=== PATIENT | male | born 1955 | race Caucasian/White ===

== ENCOUNTER 2017-04-19 10:09 | Outpatient (CLI) | payer MEDICARE, MEDICAID ==
[2017-04-19 19:38] LABS: BASOPHILS % (AUTO) 0.5 %; EOSINOPHILS # (AUTO) 0.1 10^3/uL (0.0-0.7); HCT - HEMATOCRIT 43.1 % (42.0-52.0); HGB - HEMOGLOBIN 14.5 g/dL (14.0-18.0); LYMPHOCYTES # (AUTO) 1.1 10^3/uL (1.5-3.5); LYMPHOCYTES % (AUTO) 17.2 %; MEAN CORPUSCULAR HEMOGLOBIN 31.2 pg (27.0-31.0); MEAN CORPUSCULAR HGB CONC 33.6 g/dL (32.0-36.0); MEAN CORPUSCULAR VOLUME 92.8 fL (80.0-94.0); MEAN PLATELET VOLUME 7.7 fL (7.4-11.4); MONOCYTES # (AUTO) 0.4 10^3/uL (0.0-1.0); MONOCYTES % (AUTO) 5.7 %; NEUTROPHILS % (AUTO) 75.6 %; RED BLOOD COUNT 4.64 10^6/uL (4.70-6.10); RED CELL DISTRIBUTION WIDTH 13.2 % (12.0-15.0); UNCORRECTED WHITE BLOOD COUNT 6.7 x10^3/uL; WHITE BLOOD COUNT 6.7 x10^3/uL (4.8-10.8)
[2017-04-19 19:54] LABS: ALBUMIN/GLOBULIN RATIO 1.5 (1.0-2.2); BILIRUBIN,TOTAL 0.7 mg/dL (0.2-1.0); BUN - BLOOD UREA NITROGEN 15 mg/dL (6-20); CALCIUM 9.5 mg/dL (8.5-10.3); CARBON DIOXIDE - CO2 27 mmol/L (21-32); CHLORIDE 106 mmol/L (101-111); CHOL/HDL RATIO 5.5 (<5.0); CHOLESTEROL 238 mg/dL; CREATININE 1.1 mg/dL (0.6-1.2); GFR - MDRD 68 (>89); GLUCOSE 104 mg/dL (70-100); HDL CHOLESTEROL 43 mg/dL; LDL/HDL RATIO 3.9 (<3.6); POTASSIUM 4.2 mmol/L (3.5-5.0); SODIUM 139 mmol/L (135-145); TOTAL PROTEIN 7.2 g/dL (6.7-8.2); TRIGLYCERIDES 130 mg/dL; VLDL CHOLESTEROL 26 mg/dL
== END 2017-04-19 10:10 | disposition home or self-care (01) ==
LOC: LAB.N 10:09
PROVIDERS: ATTEND Physician Assistant
DX: F25.0 Schizoaffective disorder, bipolar type (principal); F31.9 Bipolar disorder, unspecified; F17.200 Nicotine dependence, unspecified, uncomplicated; Z79.899 Other long term (current) drug therapy
CPT/HCPCS: 36415; 80053; 80061; 84443; 85025

== ENCOUNTER 2017-04-27 12:01 | Outpatient (CLI) | payer MEDICARE, MEDICAID | END 2017-04-27 12:02 | disposition critical access hospital (66) | LOC: EMS 12:01 | PROVIDERS: ATTEND Surgery | DX: R55 Syncope and collapse (principal) | CPT/HCPCS: A0425; A0429 ==

== ENCOUNTER 2017-04-27 12:27 | Emergency (ER) | payer MEDICARE, MEDICAID ==
[2017-04-27] MEDS ORDERED: SODIUM CHLORIDE 0.9% 1,000 ML IV ONE (12:54)
--- NOTE | 2017-04-27 12:59 | ED Physician Documentation ---
PD HPI SYNCOPE - Stated complaint Stated Complaint: SYNCOPE - Chief complaint Chief Complaint: Neuro - History obtained from History obtained from: Patient - History of Present Illness Witnessed: Unwitnessed Timing - onset: Today Duration: Seconds Preceding symptoms: Vision changes, Diaphoresis, Dyspnea, Light headed Associated symptoms: Diaphoresis. No: Seizure, Incontinant of urine, Incontinant of stool, Headache, Vision changes, Chest pain, Palpitations, Dyspnea, Abdominal pain Contributing factors: Decreased PO intake, Exertion Injury occurred: None Similar symptoms before: Has not had sx before Recently seen: Clinic - Additional information Additional information: 62-year-old male who was released from [facility] about 1 month ago. During that time he had gained about 40 pounds of weight. He is started to workout again is riding a bicycle and he has been writing about 20 miles per day. Today he rolled his 20 miles and then went to [place].He was using a shovel and when he bent to worm picker the tree to put it in he had a syncopal episode. He did finish 3 other trees and then went to the clinic. At the clinic they did not have their EKG machine and sent the patient to the hospital for evaluation. With exertionally related syncope. Review of Systems Constitutional: reports: Sweats. denies: Fever Eyes: denies: Decreased vision Ears: denies: Ear pain Nose: denies: Rhinorrhea / runny nose, Congestion Throat: denies: Sore throat Cardiac: denies: Chest pain / pressure, Palpitations Respiratory: denies: Dyspnea, Cough GI: denies: Abdominal Pain, Nausea, Vomiting, Constipation, Diarrhea : denies: Dysuria, Frequency Skin: denies: Rash Musculoskeletal: denies: Neck pain, Back pain, Extremity pain, Extremity swelling Neurologic: reports: Syncope. denies: Generalized weakness, Focal weakness, Numbness, Altered mental status, Headache, Head injury PD PAST MEDICAL HISTORY - Present Medications Home Medications: Ambulatory Orders Medication Instructions Recorded Confirmed Ziprasidone HCl [Geodon] 80 mg PO DAILY 04/27/17 04/27/17 - Allergies Allergies/Adverse Reactions: Allergies Allergy/AdvReac Type Severity Reaction Status Date / Time carbamazepine [From Tegretol] Allergy Unknown Verified 04/27/17 12:51 PD ED PE NORMAL - Vitals Vital signs reviewed: Yes (Normal) - General General: No acute distress, Well developed/nourished - HEENT HEENT: Atraumatic, PERRL, EOMI - Neck Neck: Supple, no meningeal sign, No bony TTP - Cardiac Cardiac: RRR, No murmur - Respiratory Respiratory: No respiratory distress, Clear bilaterally - Abdomen Abdomen: Soft, Non tender - Back Back: No CVA TTP, No spinal TTP - Derm Derm: Normal color, Warm and dry, No rash - Extremities Extremities: No deformity, No edema - Neuro Neuro: No motor deficit, No sensory deficit - Psych Psych: Normal mood, Normal affect Results - Vitals Vitals: Vital Signs - 24 hr 04/27/17 12:15 Temperature 36.8 C Heart Rate 64 Respiratory 18 Rate Blood Pressure 124/76 O2 Saturation 100 Oxygen O2 Source Room air - EKG (time done) 1238 Rate: Rate (enter#) (59) QRS: Low voltage Compare to prior EKG: Old EKG unavailable Computer interpretation: Agree with computer - Labs Labs: Laboratory Tests 04/27/17 04/27/17 04/27/17 13:03 13:03 13:03 WBC 8.3 RBC 4.53 L Hgb 13.9 L Hct 41.1 L MCV 90.7 MCH 30.8 MCHC 33.9 RDW 13.1 Plt Count 219 MPV 6.9 L Neut # 6.7 H Lymph # 1.0 L [place] # 0.5 Eos # 0.1 Baso # 0.1 Absolute Nucleated RBC 0.00 Nucleated RBCs 0.0 Sodium 138 Potassium 4.2 Chloride 104 Carbon Dioxide 26 Anion Gap 8.0 BUN 21 H Creatinine 1.3 H Estimated GFR (MDRD) 56 L Glucose 101 H Calcium 9.6 Total Bilirubin 0.6 AST 28 ALT 50 Alkaline Phosphatase 49 Troponin I < 0.04 Total Protein 7.0 Albumin 4.1 Globulin 2.9 Albumin/Globulin Ratio 1.4 Lipase 36 Urine Color Urine Clarity Urine pH Ur Specific [place] Urine Protein Urine Glucose (UA) Urine Ketones Urine Occult Blood Urine Nitrite Urine Bilirubin Urine Urobilinogen Ur Leukocyte Esterase Ur Microscopic Review Urine Culture Comments 04/27/17 13:40 WBC RBC Hgb Hct MCV MCH MCHC RDW Plt Count MPV Neut # Lymph # [place] # Eos # Baso # Absolute Nucleated RBC Nucleated RBCs Sodium Potassium Chloride Carbon Dioxide Anion Gap BUN Creatinine Estimated GFR (MDRD) Glucose Calcium Total Bilirubin AST ALT Alkaline Phosphatase Troponin I Total Protein Albumin Globulin Albumin/Globulin Ratio Lipase Urine Color YELLOW Urine Clarity CLEAR Urine pH 6.0 Ur Specific [place] 1.025 Urine Protein NEGATIVE Urine Glucose (UA) NEGATIVE Urine Ketones 15 H Urine Occult Blood NEGATIVE Urine Nitrite NEGATIVE Urine Bilirubin NEGATIVE Urine Urobilinogen 0.2 (NORMAL) Ur Leukocyte Esterase NEGATIVE Ur Microscopic Review NOT INDICATED Urine Culture Comments NOT INDICATED Procedures - IVC sono (time) 1255 Bedside IVC sono: IVC measures (cm) (1.61), IVC collapsed c insp (cm) (complete) , Dehydration PD MEDICAL DECISION MAKING - ED course Complexity details: reviewed results, re-evaluated patient, considered differential, d/w patient ED course: 62-year-old male with a exertion today and no hydration is found to be dehydrated here in the emergency department and we will administer IV fluids. Departure - Departure Disposition: 01 Home, Self Care Clinical Impression: Syncope Qualifiers: Syncope type: heat syncope Encounter type: initial encounter Qualified Code(s) : T67.1XXA - Heat syncope, initial encounter Condition: Stable Instructions: ED Syncope Vasovagal, ED Dehydration Follow-Up: [facility] [Provider Group]
[2017-04-27 13:14] LABS: BASOPHILS # (AUTO) 0.1 10^3/uL (0.0-0.1); BASOPHILS % (AUTO) 0.6 %; EOSINOPHILS # (AUTO) 0.1 10^3/uL (0.0-0.7); EOSINOPHILS % (AUTO) 0.8 %; HCT - HEMATOCRIT 41.1 % (42.0-52.0); HGB - HEMOGLOBIN 13.9 g/dL (14.0-18.0); LYMPHOCYTES % (AUTO) 11.9 %; MEAN CORPUSCULAR HEMOGLOBIN 30.8 pg (27.0-31.0); MEAN CORPUSCULAR HGB CONC 33.9 g/dL (32.0-36.0); MEAN CORPUSCULAR VOLUME 90.7 fL (80.0-94.0); MEAN PLATELET VOLUME 6.9 fL (7.4-11.4); MONOCYTES # (AUTO) 0.5 10^3/uL (0.0-1.0); MONOCYTES % (AUTO) 5.6 %; NEUTROPHILS # (AUTO) 6.7 10^3/uL (1.5-6.6); NEUTROPHILS % (AUTO) 81.1 %; RED BLOOD COUNT 4.53 10^6/uL (4.70-6.10); RED CELL DISTRIBUTION WIDTH 13.1 % (12.0-15.0); UNCORRECTED WHITE BLOOD COUNT 8.3 x10^3/uL; WHITE BLOOD COUNT 8.3 x10^3/uL (4.8-10.8)
[2017-04-27 13:27] LABS: ALBUMIN/GLOBULIN RATIO 1.4 (1.0-2.2); BILIRUBIN,TOTAL 0.6 mg/dL (0.2-1.0); CALCIUM 9.6 mg/dL (8.5-10.3); CREATININE 1.3 mg/dL (0.6-1.2); POTASSIUM 4.2 mmol/L (3.5-5.0)
[2017-04-27 14:12] LABS: BILIRUBIN,URINE NEGATIVE (NEGATIVE)
[2017-04-27 14:13] LABS: UA CHARGE (STRIP ONLY) YES; UR CULTURE IF IND NOT INDICATED
[2017-04-27 14:40] VITALS: BP 127/77
== END 2017-04-27 14:59 | disposition home or self-care (01) ==
LOC: MERGE 12:27 → ED 12:27
DX: E86.0 Dehydration (principal); R55 Syncope and collapse
CPT/HCPCS: 36415; 80053; 81001; 81003; 83690; 84484; 85025; 87086; 93005; 99283; 99284

== ENCOUNTER 2017-06-20 13:15 | Day surgery (SDC) | payer MEDICARE, MEDICAID ==
[2017-06-20] MEDS ORDERED: LACTATED RINGERS 1,000 ML IV ONE (13:32)
[2017-06-20] MEDS ORDERED: fentaNYL 100 MCG/2 ML VIAL IVP ONE (15:05)
[2017-06-20] MEDS ORDERED: MIDAZOLAM 2 MG/2 ML VIAL IVP ONE (15:05)
[2017-06-20 15:19] VITALS: BP 122/70
== END 2017-06-20 13:16 | disposition home or self-care (01) ==
LOC: SDS 13:15
PROVIDERS: ATTEND Surgery
PROC: 0DJD8ZZ Inspection of Lower Intestinal Tract, Via Natural or Artificial Opening Endoscopic (ICD-10-PCS; principal; 2017-06-20 14:30)
DX: Z86.010 Personal history of colon polyps (principal); F31.9 Bipolar disorder, unspecified
CPT/HCPCS: 45378; J7120

== ENCOUNTER 2017-07-07 14:40 | Outpatient (CLI) | payer MEDICARE, MEDICAID | END 2017-07-07 14:41 | disposition home or self-care (01) | LOC: LAB.N 14:40 | PROVIDERS: ATTEND Nurse Practitioner Gerontology | DX: R97.20 Elevated prostate specific antigen [PSA] (principal) | CPT/HCPCS: 36415; 84153 ==

== ENCOUNTER 2018-03-20 08:00 | Outpatient (CLI) | payer MEDICARE, MEDICAID | END 2018-03-20 08:01 | disposition home or self-care (01) | LOC: LAB.N 08:00 | PROVIDERS: ATTEND Nurse Practitioner Gerontology | DX: E29.1 Testicular hypofunction (principal); R07.9 Chest pain, unspecified | CPT/HCPCS: 36415; 81599; 84402; 84403; 93005 ==

== ENCOUNTER → 2018-03-20 | Outpatient (CLI) | payer MEDICARE, MEDICAID | LOC: RT.N 09:57 | PROVIDERS: ATTEND Nurse Practitioner Gerontology | DX: R07.9 Chest pain, unspecified (principal) | CPT/HCPCS: 93005 ==

== ENCOUNTER 2018-10-19 17:05 | Outpatient (CLI) | payer MEDICARE, MEDICAID | END 2018-10-19 17:06 | disposition critical access hospital (66) | LOC: EMS 17:05 | PROVIDERS: ATTEND Surgery | DX: R12 Heartburn (principal) | CPT/HCPCS: A0425; A0429 ==

== ENCOUNTER 2018-10-19 17:23 | Emergency (ER) | payer MEDICARE, MEDICAID ==
[2018-10-19] MEDS ORDERED: SODIUM CHLORIDE 0.9% 1,000 ML IV ONE (17:52)
[2018-10-19] MEDS ORDERED: FAMOTIDINE 20 MG/50 ML 50 ML IV ONE (17:52)
--- NOTE | 2018-10-19 17:56 | ED Physician Documentation ---
PD HPI ABD PAIN - Stated complaint Stated Complaint: EPIGASTRIC PAIN - Chief complaint Chief Complaint: Abd Pain - History obtained from History obtained from: Patient - History of Present Illness Timing - onset: Today (This is a 63-year-old gentleman who presents by EMS for 2 episodes of heartburn today. He clearly has chronic delusions and goes on about how he feels like his legs are covered in jelly and it is related to cyber attacks. He states that a few months ago he was in [place] campus meeting with some general's, specifically general Cheryl and he was notified of the issue and that is being taken care of. He directed me to [employer] and some [employer] videos. Regardless the more acute issues he had 2 episodes of burning central epigastric pain today that started at rest. He says it feels like prior episodes of heartburn. He is pain-free on arrival here.) Review of Systems Constitutional: denies: Fever, Chills Cardiac: denies: Chest pain / pressure, Palpitations Respiratory: denies: Dyspnea, Cough GI: reports: Abdominal Pain. denies: Nausea, Vomiting, Constipation, Diarrhea PD PAST MEDICAL HISTORY - Past Medical History Cardiovascular: None, High cholesterol Respiratory: None GI: Colon polyps : None Psych: Bipolar disorder Musculoskeletal: None - Past Surgical History General: Colonoscopy - Present Medications Home Medications: Ambulatory Orders Medication Instructions Recorded Confirmed Ziprasidone HCl [Geodon] 80 mg PO DAILY 04/27/17 06/20/17 Atorvastatin [Lipitor] 20 mg PO DAILY 06/20/17 06/20/17 - Allergies Allergies/Adverse Reactions: Allergies Allergy/AdvReac Type Severity Reaction Status Date / Time carbamazepine [From Tegretol] Allergy Unknown Verified 10/19/18 17:32 PD ED PE NORMAL - Vitals Vital signs reviewed: Yes - General General: Alert and oriented X 3, No acute distress - HEENT HEENT: PERRL, EOMI - Neck Neck: Supple, no meningeal sign, No bony TTP - Cardiac Cardiac: RRR, No murmur - Respiratory Respiratory: No respiratory distress, Clear bilaterally - Abdomen Abdomen: Non tender - Extremities Extremities: No edema, No calf tenderness / cord - Neuro Neuro: Alert and oriented X 3, Normal speech - Psych Psych: Normal mood, Normal affect Results - Vitals Vitals: Vital Signs - 24 hr 10/19/18 10/19/18 17:25 19:10 Temperature 36.2 C L Heart Rate 80 68 Respiratory 16 13 Rate Blood Pressure 143/88 H 122/78 O2 Saturation 98 99 Oxygen O2 Source Room air - EKG (time done) 1729 Rate: Rate (enter#) (76) Rhythm: NSR [place]: Normal Intervals: Normal [place] QRS: Normal Ischemia: Normal ST segments Computer interpretation: Agree with computer - Labs Labs: Laboratory Tests 10/19/18 10/19/18 10/19/18 17:33 17:40 17:40 WBC 7.4 RBC 4.49 L Hgb 14.3 Hct 41.8 L MCV 93.0 MCH 31.9 H MCHC 34.2 RDW 13.6 Plt Count 277 MPV 7.6 Neut # (Auto) 5.3 Lymph # (Auto) 1.3 L [place] # (Auto) 0.6 Eos # (Auto) 0.1 Baso # (Auto) 0.1 Absolute Nucleated RBC 0.00 Nucleated RBC % 0.0 Sodium 134 L Potassium 4.0 Chloride 102 Carbon Dioxide 25 Anion Gap 7.0 BUN 16 Creatinine 1.1 Estimated GFR (MDRD) 68 L Glucose 121 H Calcium 8.6 Total Bilirubin 0.4 AST 20 ALT 28 Alkaline Phosphatase 64 Troponin I < 0.04 Total Protein 6.4 L Albumin 3.5 Globulin 2.9 Albumin/Globulin Ratio 1.2 Lipase 51 Urine Opiates Screen Ur Oxycodone Screen Urine Methadone Screen Ur Propoxyphene Screen Ur Barbiturates Screen Ur Tricyclics Screen Ur Phencyclidine Scrn Ur Amphetamine Screen U Methamphetamines Scrn U Benzodiazepines Scrn Urine Cocaine Screen U Cannabinoids Screen 10/19/18 18:55 WBC RBC Hgb Hct MCV MCH MCHC RDW Plt Count MPV Neut # (Auto) Lymph # (Auto) [place] # (Auto) Eos # (Auto) Baso # (Auto) Absolute Nucleated RBC Nucleated RBC % Sodium Potassium Chloride Carbon Dioxide Anion Gap BUN Creatinine Estimated GFR (MDRD) Glucose Calcium Total Bilirubin AST ALT Alkaline Phosphatase Troponin I Total Protein Albumin Globulin Albumin/Globulin Ratio Lipase Urine Opiates Screen NEGATIVE Ur Oxycodone Screen NEGATIVE Urine Methadone Screen NEGATIVE Ur Propoxyphene Screen NEGATIVE Ur Barbiturates Screen NEGATIVE Ur Tricyclics Screen NEGATIVE Ur Phencyclidine Scrn NEGATIVE Ur Amphetamine Screen NEGATIVE U Methamphetamines Scrn NEGATIVE U Benzodiazepines Scrn NEGATIVE Urine Cocaine Screen NEGATIVE U Cannabinoids Screen NEGATIVE PD MEDICAL DECISION MAKING - ED course ED course: This is a 63-year-old gentleman with what sounds like gastritis. Objectively no acute findings were found on workup. No evidence of cardiac ischemia. He also seems to have stable delusions about cyber attacks and electromagnetic waves. He does have a history of bipolar disorder. There is no indication for involuntary treatment. Departure - Departure Disposition: 01 Home, Self Care Clinical Impression: Gastritis Condition: Good Record reviewed to determine appropriate education?: Yes Instructions: ED Gastritis Comments: Call your doctor to arrange a follow-up appointment, make the next available appointment. In the interim, return anytime if worse or if new symptoms develop. Discharge Date/Time: 10/19/18 19:46
[2018-10-19 18:12] LABS: ALBUMIN 3.5 g/dL (3.2-5.5); ALBUMIN/GLOBULIN RATIO 1.2 (1.0-2.2); BILIRUBIN,TOTAL 0.4 mg/dL (0.2-1.0); CALCIUM 8.6 mg/dL (8.5-10.3); CREATININE 1.1 mg/dL (0.6-1.2); TOTAL PROTEIN 6.4 g/dL (6.7-8.2)
[2018-10-19 18:15] LABS: BASOPHILS # (AUTO) 0.1 10^3/uL (0.0-0.1); BASOPHILS % (AUTO) 1.2 %; EOSINOPHILS # (AUTO) 0.1 10^3/uL (0.0-0.7); EOSINOPHILS % (AUTO) 1.9 %; HGB - HEMOGLOBIN 14.3 g/dL (14.0-18.0); LYMPHOCYTES # (AUTO) 1.3 10^3/uL (1.5-3.5); LYMPHOCYTES % (AUTO) 18.1 %; MEAN CORPUSCULAR HEMOGLOBIN 31.9 pg (27.0-31.0); MEAN CORPUSCULAR HGB CONC 34.2 g/dL (32.0-36.0); MEAN PLATELET VOLUME 7.6 fL (7.4-11.4); MONOCYTES # (AUTO) 0.6 10^3/uL (0.0-1.0); MONOCYTES % (AUTO) 7.7 %; NEUTROPHILS # (AUTO) 5.3 10^3/uL (1.5-6.6); NEUTROPHILS % (AUTO) 71.1 %; PLT - PLATELET COUNT 277 10^3/uL (130-450); RED BLOOD COUNT 4.49 10^6/uL (4.70-6.10); RED CELL DISTRIBUTION WIDTH 13.6 % (12.0-15.0); WHITE BLOOD COUNT 7.4 x10^3/uL (4.8-10.8)
--- NOTE | 2018-10-19 18:47 | XRAY Report ---
Reason: pain Procedure Date: 10/19/2018 Accession Number: [id number] / [id number] Procedure: XR - Chest 1 View X-Ray CPT Code: 24737 FULL RESULT: EXAM: CHEST RADIOGRAPHY EXAM DATE: 10/19/2018 06:18 PM. CLINICAL HISTORY: Pain. COMPARISON: 03/24/2012 7:22 PM. TECHNIQUE: 1 view. FINDINGS: Lungs/Pleura: No dense consolidation. No large effusion or pneumothorax. No pulmonary edema. Mediastinum: Heart and mediastinal contours are unremarkable. Other: None. IMPRESSION: No acute radiographic pulmonary abnormalities. RADIA
[2018-10-19 19:05] LABS: MUDS CUTOFF CONCENTRATIONS CUTOFF CONC BELOW:
[2018-10-19 19:11] VITALS: BP 122/78
[2018-10-19 19:24] LABS: AMPHETAMINE SCREEN,URINE NEGATIVE (NEGATIVE); BENZODIAZEPINES SCREEN, URINE NEGATIVE (NEGATIVE); COCAINE SCREEN URINE NEGATIVE (NEGATIVE); METHADONE SCREEN, URINE NEGATIVE (NEGATIVE); METHAMPHETAMINES SCREEN, URINE NEGATIVE (NEGATIVE); OPIATE SCREEN, URINE NEGATIVE (NEGATIVE); OXYCODONE SCREEN, URINE NEGATIVE (NEGATIVE); PROPOXYPHENE SCREEN, URINE NEGATIVE (NEGATIVE); TRICYCLIC ANTIDEPRESSANT,URINE NEGATIVE (NEGATIVE)
== END 2018-10-19 19:46 | disposition home or self-care (01) ==
LOC: EDUNIT# → ED 17:23
DX: K29.70 Gastritis, unspecified, without bleeding (principal); R94.31 Abnormal electrocardiogram [ECG] [EKG]; E78.00 Pure hypercholesterolemia, unspecified
CPT/HCPCS: 36415; 71045; 80053; 80306; 83690; 84484; 85025; 93005; 96361; 96374; 99284

== ENCOUNTER 2018-10-21 11:22 | Emergency (ER) | payer MEDICARE, MEDICAID ==
--- NOTE | 2018-10-21 12:18 | ED Physician Documentation ---
PD HPI MHE - Stated complaint Stated Complaint: MHE - Chief complaint Chief Complaint: MHE - History obtained from History obtained from: Patient - History of Present Illness Primary symptom: Other (This is a 63-year-old gentleman Who has a history of bipolar disorder. He states he is taking his medications. I saw him a few days ago for epigastric pain but he was clearly having stable delusions at the time. He returns today stating that he was in a parking lot where a truck was offloading liquid carbon dioxide (noting that that does not exist at our atmospheric pressure) and there was a piece of dry slipped on the ground. He rubbed it on his dorsal right second knuckle which he has been having some pain and for a long time and he felt like poison was spreading through cells there. He would like the FBI contacted.) Review of Systems Ten Systems: 10 systems reviewed and negative Constitutional: denies: Fever, Chills Throat: denies: Dental pain / toothache, Sore throat Cardiac: denies: Chest pain / pressure, Palpitations Respiratory: denies: Dyspnea, Cough PD PAST MEDICAL HISTORY - Past Medical History Cardiovascular: None, High cholesterol Respiratory: None GI: Colon polyps : None Psych: Bipolar disorder Musculoskeletal: None - Past Surgical History General: Colonoscopy - Present Medications Home Medications: Ambulatory Orders Medication Instructions Recorded Confirmed Ziprasidone HCl [Geodon] 80 mg PO DAILY 04/27/17 10/21/18 Atorvastatin [Lipitor] 20 mg PO DAILY 06/20/17 10/21/18 - Allergies Allergies/Adverse Reactions: Allergies Allergy/AdvReac Type Severity Reaction Status Date / Time carbamazepine [From Tegretol] Allergy Unknown Verified 10/21/18 11:33 - Social History Does the pt smoke?: No Smoking Status: Never smoker Does the pt drink ETOH?: Yes Does the pt have substance abuse?: No - Immunizations Immunizations are current?: Yes PD ED PE NORMAL - Vitals Vital signs reviewed: Yes - General General: Alert and oriented X 3, No acute distress - HEENT HEENT: PERRL, EOMI - Neck Neck: Supple, no meningeal sign, No bony TTP - Cardiac Cardiac: RRR, No murmur - Respiratory Respiratory: No respiratory distress, Clear bilaterally - Abdomen Abdomen: Normal bowel sounds, Soft, Non tender - Back Back: No CVA TTP, No spinal TTP - Derm Derm: Normal color, Warm and dry - Extremities Extremities: No edema, No calf tenderness / cord - Neuro Neuro: Alert and oriented X 3, Normal speech Eye Opening: Spontaneous Motor: Obeys Commands Verbal: Oriented GCS Score: 15 - Psych Psych: Other (He is clearly delusional but very cooperative and pleasant.) Results - Vitals Vitals: Vital Signs - 24 hr 10/21/18 11:30 Temperature 36.7 C Heart Rate 87 Respiratory 16 Rate Blood Pressure 129/84 H O2 Saturation 100 Oxygen O2 Source Room air - Labs Labs: Laboratory Tests 10/21/18 10/21/18 10/21/18 12:23 12:23 12:23 WBC 6.1 RBC 5.00 Hgb 15.5 Hct 45.6 MCV 91.2 MCH 31.0 MCHC 34.0 RDW 13.5 Plt Count 292 MPV 7.1 L Neut # (Auto) 4.0 Lymph # (Auto) 1.4 L [place] # (Auto) 0.5 Eos # (Auto) 0.1 Baso # (Auto) 0.1 Absolute Nucleated RBC 0.00 Nucleated RBC % 0.0 Sodium 137 Potassium 4.6 Chloride 103 Carbon Dioxide 27 Anion Gap 7.0 BUN 9 Creatinine 0.9 Estimated GFR (MDRD) 86 L Glucose 91 Calcium 9.4 Total Bilirubin 0.4 AST 17 ALT 24 Alkaline Phosphatase 62 Total Protein 7.0 Albumin 3.8 Globulin 3.2 Albumin/Globulin Ratio 1.2 Lipase 45 TSH 0.39 Urine Color Urine Clarity Urine pH Ur Specific [place] Urine Protein Urine Glucose (UA) Urine Ketones Urine Occult Blood Urine Nitrite Urine Bilirubin Urine Urobilinogen Ur Leukocyte Esterase Ur Microscopic Review Urine Culture Comments Urine Opiates Screen Ur Oxycodone Screen Urine Methadone Screen Ur Propoxyphene Screen Ur Barbiturates Screen Ur Tricyclics Screen Ur Phencyclidine Scrn Ur Amphetamine Screen U Methamphetamines Scrn U Benzodiazepines Scrn Urine Cocaine Screen U Cannabinoids Screen Ethyl Alcohol 12.3 10/21/18 12:25 WBC RBC Hgb Hct MCV MCH MCHC RDW Plt Count MPV Neut # (Auto) Lymph # (Auto) [place] # (Auto) Eos # (Auto) Baso # (Auto) Absolute Nucleated RBC Nucleated RBC % Sodium Potassium Chloride Carbon Dioxide Anion Gap BUN Creatinine Estimated GFR (MDRD) Glucose Calcium Total Bilirubin AST ALT Alkaline Phosphatase Total Protein Albumin Globulin Albumin/Globulin Ratio Lipase TSH Urine Color YELLOW Urine Clarity CLEAR Urine pH 5.5 Ur Specific [place] 1.020 Urine Protein NEGATIVE Urine Glucose (UA) NEGATIVE Urine Ketones NEGATIVE Urine Occult Blood NEGATIVE Urine Nitrite NEGATIVE Urine Bilirubin NEGATIVE Urine Urobilinogen 0.2 (NORMAL) Ur Leukocyte Esterase NEGATIVE Ur Microscopic Review NOT INDICATED Urine Culture Comments NOT INDICATED Urine Opiates Screen NEGATIVE Ur Oxycodone Screen NEGATIVE Urine Methadone Screen NEGATIVE Ur Propoxyphene Screen NEGATIVE Ur Barbiturates Screen NEGATIVE Ur Tricyclics Screen NEGATIVE Ur Phencyclidine Scrn NEGATIVE Ur Amphetamine Screen NEGATIVE U Methamphetamines Scrn NEGATIVE U Benzodiazepines Scrn NEGATIVE Urine Cocaine Screen NEGATIVE U Cannabinoids Screen NEGATIVE Ethyl Alcohol PD MEDICAL DECISION MAKING - ED course ED course: 63-year-old gentleman with history of bipolar disorder with continued delusions. This is his second visit in 3 days and given the increasing frequency social work was consulted who deferred to the [facility] who saw him and feels he is appropriate for outpatient treatment and safe. Departure - Departure Disposition: 01 Home, Self Care Clinical Impression: Bipolar affective disorder Qualifiers: Active/Remission status: currently active Current bipolar episode type: mixed Current episode severity: severe Psychotic features: with psychotic features Qualified Code(s): F31.64 - Bipolar disorder, current episode mixed, severe, with psychotic features Condition: Good Record reviewed to determine appropriate education?: Yes Instructions: ED Manic Depression Comments: Continue your current medications. Call your doctor to arrange a follow-up appointment, make the next available appointment. In the interim, return anytime if worse or if new symptoms develop. Follow-up with [facility] at [phone] to schedule psychiatric care and counseling. Your blood pressure was elevated today on check into the emergency department. This does not mean that you have hypertension, it is a common phenomenon to come to the emergency department and have elevated blood pressure. I recommend that you see your primary care physician within the week to have it rechecked when you are feeling better.
[2018-10-21 12:30] LABS: MUDS CUTOFF CONCENTRATIONS CUTOFF CONC BELOW:
[2018-10-21 12:31] LABS: BILIRUBIN,URINE NEGATIVE (NEGATIVE); GLUCOSE, URINE (UA) NEGATIVE (NEGATIVE); KETONES,URINE (UA) NEGATIVE (NEGATIVE); LEUKOCYTE ESTERASE, URINE NEGATIVE (NEGATIVE); NITRITE,URINE NEGATIVE (NEGATIVE); OCCULT BLOOD,URINE NEGATIVE (NEGATIVE); PH,URINE 5.5 PH (5.0-7.5); PROTEIN,URINE NEGATIVE (NEGATIVE); UROBILINOGEN,URINE 0.2 (NORMAL) E.U./dL (NORMAL)
[2018-10-21 12:32] LABS: CLARITY,URINE CLEAR (CLEAR)
[2018-10-21 12:33] LABS: BASOPHILS # (AUTO) 0.1 10^3/uL (0.0-0.1); BASOPHILS % (AUTO) 1.1 %; EOSINOPHILS # (AUTO) 0.1 10^3/uL (0.0-0.7); EOSINOPHILS % (AUTO) 1.8 %; HGB - HEMOGLOBIN 15.5 g/dL (14.0-18.0); LYMPHOCYTES # (AUTO) 1.4 10^3/uL (1.5-3.5); LYMPHOCYTES % (AUTO) 23.3 %; MEAN CORPUSCULAR VOLUME 91.2 fL (80.0-94.0); MEAN PLATELET VOLUME 7.1 fL (7.4-11.4); MONOCYTES # (AUTO) 0.5 10^3/uL (0.0-1.0); MONOCYTES % (AUTO) 8.2 %; NEUTROPHILS % (AUTO) 65.6 %; PLT - PLATELET COUNT 292 10^3/uL (130-450); RED CELL DISTRIBUTION WIDTH 13.5 % (12.0-15.0); WHITE BLOOD COUNT 6.1 x10^3/uL (4.8-10.8)
[2018-10-21 12:45] LABS: ALBUMIN 3.8 g/dL (3.2-5.5); ALBUMIN/GLOBULIN RATIO 1.2 (1.0-2.2); BILIRUBIN,TOTAL 0.4 mg/dL (0.2-1.0); CALCIUM 9.4 mg/dL (8.5-10.3); CREATININE 0.9 mg/dL (0.6-1.2)
[2018-10-21 12:52] LABS: AMPHETAMINE SCREEN,URINE NEGATIVE (NEGATIVE); BENZODIAZEPINES SCREEN, URINE NEGATIVE (NEGATIVE); COCAINE SCREEN URINE NEGATIVE (NEGATIVE); METHADONE SCREEN, URINE NEGATIVE (NEGATIVE); METHAMPHETAMINES SCREEN, URINE NEGATIVE (NEGATIVE); OPIATE SCREEN, URINE NEGATIVE (NEGATIVE); OXYCODONE SCREEN, URINE NEGATIVE (NEGATIVE); PROPOXYPHENE SCREEN, URINE NEGATIVE (NEGATIVE); TRICYCLIC ANTIDEPRESSANT,URINE NEGATIVE (NEGATIVE)
[2018-10-21 18:04] VITALS: BP 128/82
== END 2018-10-21 18:02 | disposition home or self-care (01) ==
LOC: ED 11:22
DX: F31.64 Bipolar disorder, current episode mixed, severe, with psychotic features (principal); R03.0 Elevated blood-pressure reading, without diagnosis of hypertension
CPT/HCPCS: 36415; 80053; 80306; 80320; 81001; 81003; 83690; 84443; 85025; 87086; 99283

== ENCOUNTER 2019-06-19 01:09 | Emergency (ER) | payer MEDICARE, MEDICAID ==
--- NOTE | 2019-06-19 01:55 | ED Physician Documentation ---
PD HPI GI BLEED - Stated complaint Stated Complaint: COFFEE GROUND EMESIS/REFLUX - Chief complaint Chief Complaint: Abd Pain - History obtained from History obtained from: Patient - History of Present Illness Timing - onset: How many days ago (few) Timing - duration: Days (few) Timing - details: Gradual onset, Still present (He has been having some upper abdominal pain and heartburn type feelings, worse with eating and sometimes improved with antacids for several days to week or so. It was more noticeable the last day and he did have emesis of coffee-ground type material this past evening.) Associated symptoms: Coffee ground emesis. No: Hematemesis, Black/tarry stool Contributing factors: No: Bad food, Travel, Alcohol use (occasional beer, not regular), NSAID use Improved by: Meds (antacid) Worsened by: Eating Similar symptoms before: Diagnosis (Prior gastritis or ulcer was treated with acid reducing medicines and another prescription that he describes as a red syrup type medication prescribed by his provider that cost "$200 per bottle". He is not sure what the name of it was. He states it was prescribed for his ulcer type stomach symptoms. He said it did work well for him in the past. This was couple of years ago.) Recently seen: Not recently seen Review of Systems Constitutional: denies: Fever, Chills, Myalgias Nose: denies: Rhinorrhea / runny nose, Congestion Throat: denies: Sore throat Respiratory: denies: Cough GI: reports: Abdominal Pain, Nausea, Vomiting (once this past evening). denies: Abdominal Swelling, Diarrhea, Bloody / black stool Musculoskeletal: denies: Neck pain, Back pain Neurologic: reports: Generalized weakness. denies: Focal weakness, Near syncope, Headache PD PAST MEDICAL HISTORY - Past Medical History Past Medical History: Yes Cardiovascular: None, High cholesterol Respiratory: None GI: Ulcers, Colon polyps : None Psych: Bipolar disorder Musculoskeletal: None - Past Surgical History Past Surgical History: Yes General: Colonoscopy - Present Medications Home Medications: Ambulatory Orders Medication Instructions Recorded Confirmed Atorvastatin [Lipitor] 20 mg PO DAILY 06/20/17 10/21/18 Lidocaine Viscous 2% [Xylocaine 5 ml PO Q4H PRN #100 ml 06/19/19 Viscous 2%] Omeprazole 20 mg PO DAILY #30 capsule. 06/19/19 Sucralfate [Carafate] 1 gm PO ACHS #28 tablet 06/19/19 - Allergies Allergies/Adverse Reactions: Allergies Allergy/AdvReac Type Severity Reaction Status Date / Time carbamazepine [From Tegretol] Allergy Unknown Verified 06/19/19 01:17 - Living Situation Living Arrangement: reports: At home - Social History Does the pt smoke?: No Smoking Status: Never smoker Does the pt drink ETOH?: Yes ETOH Use: Beer (occasional, not taily) Does the pt have substance abuse?: No - Immunizations Immunizations are current?: Yes PD ED PE NORMAL - Vitals Vital signs reviewed: Yes - General General: Alert and oriented X 3, Well developed/nourished - HEENT HEENT: Moist mucous membranes, Pharynx benign - Neck Neck: Supple, no meningeal sign, No adenopathy - Cardiac Cardiac: RRR, No murmur - Respiratory Respiratory: Clear bilaterally - Abdomen Abdomen: Normal bowel sounds, Soft, Non distended, No organomegaly, Other (Some tenderness without guarding in the epigastric area. The lower abdomen is not tender.) - Male Male : Deferred - Rectal Rectal: Deferred - Back Back: No CVA TTP - Derm Derm: Normal color, Warm and dry - Extremities Extremities: Normal ROM s pain, No edema, No calf tenderness / cord - Neuro Neuro: Alert and oriented X 3, No motor deficit, Normal speech Results - Vitals Vitals: Vital Signs - 24 hr 06/19/19 06/19/19 06/19/19 01:14 01:30 02:18 Temperature 36.4 C L Heart Rate 76 69 63 Respiratory 16 20 19 Rate Blood Pressure 126/91 H 111/82 H O2 Saturation 94 95 95 Oxygen O2 Source Room air - Labs Labs: Laboratory Tests 06/19/19 06/19/19 01:22 01:22 WBC 11.5 H RBC 5.24 Hgb 15.8 Hct 47.7 MCV 91.0 MCH 30.2 MCHC 33.1 RDW 12.8 Plt Count 268 MPV 9.6 Neut # (Auto) 9.2 H Lymph # (Auto) 1.4 L [place] # (Auto) 0.8 Eos # (Auto) 0.1 Baso # (Auto) 0.1 Absolute Nucleated RBC 0.00 Nucleated RBC % 0.0 Sodium 142 Potassium 4.1 Chloride 105 Carbon Dioxide 27 Anion Gap 10.0 BUN 27 H Creatinine 1.5 H Estimated GFR (MDRD) 47 L Glucose 107 H Calcium 9.5 Magnesium 2.0 Total Bilirubin 0.4 AST 20 ALT 22 Alkaline Phosphatase 69 Total Protein 7.0 Albumin 4.1 Globulin 2.9 Albumin/Globulin Ratio 1.4 Lipase 31 PD MEDICAL DECISION MAKING - ED course Complexity details: re-evaluated patient (He is feeling better with a GI cocktail. Presumed gastritis versus ulcer. His blood count is good so the coffee-ground emesis today probably represents just a mild bit of bleeding. Will prescribe medications and have him follow-up with his primary care. To return if significant bleeding with vomiting or consistent dark stools.), cons idered differential, d/w patient Departure - Departure Disposition: Home, Self Care Clinical Impression: Coffee ground emesis Acute gastritis Qualifiers: Gastritis type: unspecified gastritis Gastritis bleeding: with bleeding Qualified Code(s): K29.01 - Acute gastritis with bleeding Condition: Stable Record reviewed to determine appropriate education?: Yes Instructions: ED PUD Vs Gastritis Follow-Up: Ira Kraft ARNP [Primary Care Provider] - Prescriptions: Lidocaine Viscous 2% [Xylocaine Viscous 2%] 5 ml PO Q4H PRN #100 ml PRN Reason: Pain Omeprazole 20 mg PO DAILY #30 capsule. Sucralfate [Carafate] 1 gm PO ACHS #28 tablet Comments: Stay well-hydrated. Use omeprazole acid reducing medicine daily for the next month at least. Sucralfate to coat the stomach better 3 or 4 times a day for the next week. To that add antacid such as Maalox or Mylanta and you can put a teaspoon of lidocaine in there to help with stomach discomfort. Recheck if not improving well over the next several days to week. Follow-up with your primary care in a week or so to update how well you are doing and if any treatment changes are needed. Return if worsening. Your blood count is good here so even if you are having a little bit of bleeding right now in the stomach you still have a safety margin before worrying about too much blood loss. Obviously return if you have significant amount of vomiting blood show up. You may notice a little bit of dark stool in a few days and as long as its transient and mild then no extra worry. Discharge Date/Time: 06/19/19 02:51
[2019-06-19] MEDS ORDERED: LIDOCAINE VISCOUS 2% 15 ML UDC MM STA (02:06)
[2019-06-19] MEDS ORDERED: MAG HYDROX/AL HYDROX/SIMETH 30 ML UDC PO STA (02:07)
[2019-06-19] MEDS ORDERED: diphenhydrAMINE ELIXIR 25 MG/10 ML UDC PO STA (02:07)
[2019-06-19] MEDS ORDERED: FAMOTIDINE 20 MG TABLET PO STA (02:07)
[2019-06-19 02:12] LABS: BASOPHILS # (AUTO) 0.1 10^3/uL (0.0-0.1); BASOPHILS % (AUTO) 0.4 %; EOSINOPHILS # (AUTO) 0.1 10^3/uL (0.0-0.7); EOSINOPHILS % (AUTO) 0.7 %; HGB - HEMOGLOBIN 15.8 g/dL (14.0-18.0); LYMPHOCYTES # (AUTO) 1.4 10^3/uL (1.5-3.5); LYMPHOCYTES % (AUTO) 12.3 %; MEAN CORPUSCULAR HEMOGLOBIN 30.2 pg (27.0-31.0); MEAN CORPUSCULAR HGB CONC 33.1 g/dL (32.0-36.0); MEAN PLATELET VOLUME 9.6 fL (7.4-11.4); MONOCYTES # (AUTO) 0.8 10^3/uL (0.0-1.0); MONOCYTES % (AUTO) 6.7 %; NEUTROPHILS # (AUTO) 9.2 10^3/uL (1.5-6.6); NEUTROPHILS % (AUTO) 79.5 %; PLT - PLATELET COUNT 268 10^3/uL (130-450); RED BLOOD COUNT 5.24 10^6/uL (4.70-6.10); RED CELL DISTRIBUTION WIDTH 12.8 % (12.0-15.0); WHITE BLOOD COUNT 11.5 x10^3/uL (4.8-10.8)
[2019-06-19 02:22] VITALS: BP 111/82
[2019-06-19 02:24] LABS: ALBUMIN 4.1 g/dL (3.2-5.5); ALBUMIN/GLOBULIN RATIO 1.4 (1.0-2.2); BILIRUBIN,TOTAL 0.4 mg/dL (0.2-1.0); CALCIUM 9.5 mg/dL (8.5-10.3); CREATININE 1.5 mg/dL (0.6-1.2)
== END 2019-06-19 02:51 | disposition home or self-care (01) ==
LOC: ED 01:09
DX: K29.01 Acute gastritis with bleeding (principal)
CPT/HCPCS: 36415; 80053; 83690; 83735; 85025; 93005; 99283; 99284; A9270

== ENCOUNTER 2019-08-14 06:00 | Outpatient (CLI) | payer MEDICARE, MEDICAID | END 2019-08-14 06:01 | disposition critical access hospital (66) | LOC: EMS 06:00 | PROVIDERS: ATTEND Surgery | DX: N48.89 Other specified disorders of penis (principal) | CPT/HCPCS: A0425; A0429 ==

== ENCOUNTER 2019-08-14 06:17 | Emergency (ER) | payer MEDICARE, MEDICAID ==
[2019-08-14 06:46] LABS: BASOPHILS # (AUTO) 0.1 10^3/uL (0.0-0.1); BASOPHILS % (AUTO) 0.7 %; EOSINOPHILS # (AUTO) 0.2 10^3/uL (0.0-0.7); EOSINOPHILS % (AUTO) 2.4 %; HGB - HEMOGLOBIN 13.8 g/dL (14.0-18.0); LYMPHOCYTES # (AUTO) 0.9 10^3/uL (1.5-3.5); LYMPHOCYTES % (AUTO) 11.6 %; MEAN CORPUSCULAR HEMOGLOBIN 31.2 pg (27.0-31.0); MEAN CORPUSCULAR HGB CONC 32.9 g/dL (32.0-36.0); MEAN CORPUSCULAR VOLUME 94.8 fL (80.0-94.0); MEAN PLATELET VOLUME 9.2 fL (7.4-11.4); MONOCYTES # (AUTO) 0.6 10^3/uL (0.0-1.0); MONOCYTES % (AUTO) 7.9 %; NEUTROPHILS # (AUTO) 5.8 10^3/uL (1.5-6.6); NEUTROPHILS % (AUTO) 76.9 %; PLT - PLATELET COUNT 230 10^3/uL (130-450); RED BLOOD COUNT 4.43 10^6/uL (4.70-6.10); RED CELL DISTRIBUTION WIDTH 12.5 % (12.0-15.0); WHITE BLOOD COUNT 7.6 x10^3/uL (4.8-10.8)
[2019-08-14 07:00] LABS: ALBUMIN 3.2 g/dL (3.2-5.5); ALBUMIN/GLOBULIN RATIO 1.1 (1.0-2.2); BILIRUBIN,TOTAL 0.8 mg/dL (0.2-1.0); CALCIUM 8.9 mg/dL (8.5-10.3); CREATININE 1.1 mg/dL (0.6-1.2); TOTAL PROTEIN 6.1 g/dL (6.7-8.2)
--- NOTE | 2019-08-14 07:19 | ED Physician Documentation ---
History of Present Illness - Stated complaint Stated Complaint: MALE - Chief complaint Chief Complaint: General - Additonal information Additional information: This is a 64 year old male with A history of bipolar disorder, and penile fract ure status post surgery in [place] around 1 month ago, who presents with redness, purulent drainage and pain in his penis. Patient states that after his penile fracture, his surgery site healed well, however over the last several days he noticed some redness around the distal shaft of his penis, which has continued to become more swollen and painful. Now he is noticed some purulent discharge from the wound. He still has sensation in his penis, and denies any fever or rash elsewhere. Review of Systems Constitutional: denies: Fever Cardiac: denies: Chest pain / pressure Respiratory: denies: Dyspnea GI: denies: Abdominal Pain : reports: Other (See HPI) Skin: reports: Rash Immunocompromised: denies: Immunocompromised PD PAST MEDICAL HISTORY - Past Medical History Cardiovascular: None, High cholesterol Respiratory: None GI: Ulcers, Colon polyps : None Psych: Bipolar disorder Musculoskeletal: None - Past Surgical History Past Surgical History: Yes General: Colonoscopy - Present Medications Home Medications: Ambulatory Orders Medication Instructions Recorded Confirmed Atorvastatin [Lipitor] 20 mg PO DAILY 06/20/17 10/21/18 Lidocaine Viscous 2% [Xylocaine 5 ml PO Q4H PRN #100 ml 06/19/19 Viscous 2%] Omeprazole 20 mg PO DAILY #30 capsule. 06/19/19 Sucralfate [Carafate] 1 gm PO ACHS #28 tablet 06/19/19 Cephalexin [Keflex] 500 mg PO Q6H #40 capsule 08/14/19 Sulfamethox/Trimeth 800/160 1 each PO BID #20 tablet 08/14/19 [Bactrim Ds 800/160] - Allergies Allergies/Adverse Reactions: Allergies Allergy/AdvReac Type Severity Reaction Status Date / Time carbamazepine [From Tegretol] Allergy Unknown Verified 06/19/19 01:17 - Social History Does the pt smoke?: No Smoking Status: Never smoker Does the pt drink ETOH?: Yes Does the pt have substance abuse?: No - Immunizations Immunizations are current?: Yes PD ED PE NORMAL - Vitals Vital signs reviewed: Yes - General General: Alert and oriented X 3 - HEENT HEENT: Atraumatic - Neck Neck: Supple, no meningeal sign - Cardiac Cardiac: RRR - Respiratory Respiratory: No respiratory distress, Clear bilaterally - Abdomen Abdomen: Normal bowel sounds - Male Male : Other (Circumcised penis, with distal swelling. There are several strands of hair that are wrapped around the shaft. These have actually eroded into the subcutaneous tissues laterally. They appear to have just formed indentation on the dorsal aspect of the penis. The hairs are cut and easily removed. There is some fibrinous and purulence in the lateral aspect of the penis where the hair is eroded into the tissues. Patient sensation is intact on the glans, and distal perfusion appears normal) - Extremities Extremities: No deformity - Neuro Neuro: Alert and oriented X 3 Results - Vitals Vitals: Vital Signs - 24 hr 08/14/19 08/14/19 06:22 09:30 Temperature 37.2 C 37.8 C H Heart Rate 88 65 Respiratory 16 15 Rate Blood Pressure 136/84 H 127/86 H O2 Saturation 99 96 Oxygen O2 Source Room air - Labs Labs: Laboratory Tests 08/14/19 08/14/19 08/14/19 06:39 06:39 06:39 WBC 7.6 RBC 4.43 L Hgb 13.8 L Hct 42.0 MCV 94.8 H MCH 31.2 H MCHC 32.9 RDW 12.5 Plt Count 230 MPV 9.2 Neut # (Auto) 5.8 Lymph # (Auto) 0.9 L [place] # (Auto) 0.6 Eos # (Auto) 0.2 Baso # (Auto) 0.1 Absolute Nucleated RBC 0.00 Nucleated RBC % 0.0 PT 11.4 INR 1.0 Sodium 138 Potassium 3.8 Chloride 105 Carbon Dioxide 24 Anion Gap 9.0 BUN 15 Creatinine 1.1 Estimated GFR (MDRD) 68 L Glucose 133 H Calcium 8.9 Total Bilirubin 0.8 AST 33 ALT 56 Alkaline Phosphatase 62 Total Protein 6.1 L Albumin 3.2 Globulin 2.9 Albumin/Globulin Ratio 1.1 Lipase 08/14/19 06:39 WBC RBC Hgb Hct MCV MCH MCHC RDW Plt Count MPV Neut # (Auto) Lymph # (Auto) [place] # (Auto) Eos # (Auto) Baso # (Auto) Absolute Nucleated RBC Nucleated RBC % PT INR Sodium Potassium Chloride Carbon Dioxide Anion Gap BUN Creatinine Estimated GFR (MDRD) Glucose Calcium Total Bilirubin AST ALT Alkaline Phosphatase Total Protein Albumin Globulin Albumin/Globulin Ratio Lipase 46 PD MEDICAL DECISION MAKING - ED course Complexity details: considered differential (Cellulitis, abscess, hair tourniquet, surgical complication) ED course: Patient is nontoxic on arrival, he has unremarkable vital signs. On exam he had a hair tourniquet which was cut he does have significant infection around the area of the hair tourniquet with some erosion of the subcutaneous tissues. His sensation and perfusion appear intact. Now that the hair tourniquet is gone, I feel that this will likely improve with antibiotics, but given the extent of his redness swelling in the wounds of his penis,I do believe he needs evaluation by urologist promptly. IV was inserted and labs were drawn, patient was started on ceftriaxone and Bactrim. I spoke to Dr. Najera of [facility] urology, who states that she will be able to see patient in clinic today. Patient does not have t ransportation so we arranged a cab through Medicaid for him. His white blood cell count is normal, he has no signs of systemic toxicity. I discussed with patient the plan and also provided him with the address and contact information for the clinic. I also provide him prescriptions for Keflex and Bactrim with the options to review these with his urologist to determine that they do not want to change them. Also discussed that if for wahtever reason he cannot be seen in the clinic today, he is to present to the nearest emergency department for further evaluation. I discussed return precautions and patient agreed and was discharged to his urology visit. Departure - Departure Disposition: 01 Home, Self Care Clinical Impression: Infection of penis, Hair tourniquet of penis with infection Condition: Good Prescriptions: Cephalexin [Keflex] 500 mg PO Q6H #40 capsule Sulfamethox/Trimeth 800/160 [Bactrim Ds 800/160] 1 each PO BID #20 tablet Comments: You have an infection of the penis which likely started due to a piece of hair that was wrapped around it. You need to see a urologist today. Please go directly to the [facility] urology office ([phone] ) using the cab that we have arranged, their office will see you today. If for some reason you are unable to be seen in that clinic, go to the nearest emergency department for further evaluation. We will prescribe you Bactrim and Keflex, But discuss these antibiotics with the urologist to determine if they want to change them or not. With any worsening symptoms, return to the emergency department. Discharge Date/Time: 08/14/19 09:57
[2019-08-14] MEDS ORDERED: SULFAMETH/TRIMETH DS 800/160 MG TABLET PO STA (07:33)
[2019-08-14] MEDS ORDERED: cefTRIAXone 1 GM in SODIUM CHLORIDE 0.9% MINIBAG 100 ML IV STA (07:33)
[2019-08-14 07:43] LABS: PT - PROTHROMBIN TIME 11.4 secs (9.9-12.6)
[2019-08-14 09:31] VITALS: BP 127/86
[2019-08-14] MEDS ORDERED: ACETAMINOPHEN 325 MG TABLET PO STA (09:35)
== END 2019-08-14 09:57 | disposition home or self-care (01) ==
LOC: EDUNIT# → ED 06:17
DX: N48.29 Other inflammatory disorders of penis (principal); S30.842A External constriction of penis, initial encounter; W49.01XA Hair causing external constriction, initial encounter
CPT/HCPCS: 36415; 80053; 83690; 85025; 85610; 96365; 99283; 99284; A9270

== ENCOUNTER 2022-03-10 09:27 | Emergency (ER) | payer MEDICARE, MEDICAID ==
[2022-03-10 09:40] VITALS: BP 120/78
--- NOTE | 2022-03-10 11:19 | XRAY Report ---
PROCEDURE: Chest 1 View X-Ray INDICATIONS: chest pain TECHNIQUE: One view of the chest was acquired. COMPARISON: Chest x-ray 10/19/2018 FINDINGS: Surgical changes and devices: None. Lungs and pleura: No pleural effusions or pneumothorax. Lungs are clear. Mediastinum: Mediastinal contours appear normal. Heart size is normal. Bones and chest wall: No suspicious bony lesions. Overlying soft tissues appear unremarkable. IMPRESSION: No acute pulmonary process. Reviewed by: Teri Rosenthal MD on 03/10/2022 11:17 AM PDT Approved by: Teri Rosenthal MD on 03/10/2022 11:17 AM PDT Station ID: [id number]
--- NOTE | 2022-03-10 11:24 | ED Physician Documentation ---
PD HPI URI - Stated complaint Stated Complaint: COUGH/RUNNY NOSE/SOA - Chief complaint Chief Complaint: Resp - History obtained from History obtained from: Patient - History of Present Illness Timing - onset: How many days ago (4) Timing duration: Days (4) Timing details: Gradual onset, Still present Associated symptoms: Nasal congestion, Rhinorrhea, Productive cough Contributing factors: Sick contact Improves by: Rest, Medication Similar symptoms before: Diagnosis (bronchitis) Recently seen: Not recently seen - Additional information Additional information: cough productive of sputum and shortness of breath for past 2 weeks. Increasing symptoms. has not tested for COVID Review of Systems Constitutional: denies: Fever Ears: denies: Ear pain Nose: reports: Rhinorrhea / runny nose, Congestion Cardiac: denies: Chest pain / pressure, Palpitations Respiratory: reports: Dyspnea, Cough, Wheezing GI: denies: Abdominal Pain, Nausea, Vomiting : denies: Dysuria PD PAST MEDICAL HISTORY - Past Medical History Cardiovascular: None, High cholesterol Respiratory: None GI: Ulcers, Colon polyps : None Psych: Bipolar disorder Musculoskeletal: None - Past Surgical History Past Surgical History: Yes General: Colonoscopy - Present Medications Home Medications: Ambulatory Orders Medication Instructions Recorded Confirmed Atorvastatin [Lipitor] 40 mg PO DAILY 06/20/17 03/10/22 Albuterol Sulf [Ventolin Hfa 1 - 2 puffs INH Q4HR PRN #1 inhaler 03/10/22 Inhaler] Azithromycin [Zithromax] 250 mg PO DAILY #6 tablet 03/10/22 - Allergies Allergies/Adverse Reactions: Allergies Allergy/AdvReac Type Severity Reaction Status Date / Time carbamazepine [From Tegretol] Allergy Unknown Verified 03/10/22 09:40 - Social History Does the pt smoke?: No Smoking Status: Never smoker Does the pt drink ETOH?: Yes Does the pt have substance abuse?: No - Immunizations Immunizations are current?: Yes PD ED PE NORMAL - Vitals Vital signs reviewed: Yes (normal) - General General: Alert and oriented X 3, No acute distress, Well developed/nourished - HEENT HEENT: Atraumatic, PERRL, EOMI, Other (minimal inflamation to the left TM) - Neck Neck: Supple, no meningeal sign, No bony TTP - Cardiac Cardiac: RRR, No murmur - Respiratory Respiratory: No respiratory distress, Other (diminished breath sounds and tight wheezes) - Abdomen Abdomen: Soft, Non tender - Derm Derm: Normal color, Warm and dry, No rash - Extremities Extremities: No deformity, No edema - Neuro Neuro: Alert and oriented X 3, extrusion supervisor 2-12 intact, No motor deficit, No sensory deficit, Normal speech Eye Opening: Spontaneous Motor: Obeys Commands Verbal: Oriented GCS Score: 15 - Psych Psych: Normal mood, Normal affect Results - Vitals Vitals: Vital Signs - 24 hr 03/10/22 09:34 Temperature 36.9 C Heart Rate 67 Respiratory 16 Rate Blood Pressure 120/78 O2 Saturation 97 Oxygen O2 Source Room air - Rads (name of study) chest Radiology: Prelim report reviewed (Impression: No acute pulmonary process.), EMP read indepedently PD MEDICAL DECISION MAKING - ED course Complexity details: reviewed results, re-evaluated patient, considered differential, d/w patient ED course: 67 y/o male with cough and wheezing has a normal appearing chest x-ray. He is encouraged to perform a home test for COVID. He is treated for asthmatic bronchitis. Departure - Departure Disposition: 01 Home, Self Care Clinical Impression: Bronchitis Condition: Stable Instructions: ED Bronchitis Asthmatic Follow-Up: Selene Blackmon MD [Provider Admit Priv/Credential] - Prescriptions: Albuterol Sulf [Ventolin Hfa Inhaler] 1 - 2 puffs INH Q4HR PRN #1 inhaler PRN Reason: Shortness Of Air/Wheezing Azithromycin [Zithromax] 250 mg PO DAILY #6 tablet Comments: Juan, today it looks like you have some bronchitis and or bringing up yellow and green phlegm. As well as some bronchospasm causing wheezing. I have prescribed an inhaler for your use. In addition we have prescribed azithromycin, this is an antibiotic that would help clean up residual infection. Your medications have been E scribed to [facility] in [place]. Discharge Date/Time: 03/10/22 11:45
== END 2022-03-10 11:45 | disposition home or self-care (01) ==
LOC: ED 09:27
DX: J40 Bronchitis, not specified as acute or chronic (principal)
CPT/HCPCS: 99283

== ENCOUNTER 2022-12-25 07:15 | Outpatient (CLI) | payer MEDICARE, MEDICAID | END 2022-12-25 07:16 | disposition critical access hospital (66) | LOC: EMS 07:15 | DX: R11.2 Nausea with vomiting, unspecified (principal); R50.9 Fever, unspecified; R10.817 Generalized abdominal tenderness | CPT/HCPCS: A0425; A0427 ==

== ENCOUNTER 2022-12-25 07:40 | Emergency (ER) | payer MEDICARE, MEDICAID ==
[2022-12-25] MEDS ORDERED: PROMETHAZINE INJ 12.5 MG in SODIUM CHLORIDE 0.9% 50 ML IV STA (07:46)
[2022-12-25] MEDS ORDERED: SODIUM CHLORIDE 0.9% 1,000 ML IV STA (07:46)
--- NOTE | 2022-12-25 07:48 | ED Physician Documentation ---
History of Present Illness - Stated complaint Stated Complaint: N/V - History obtained from History obtained from: Patient, EMS - Additonal information Additional information: The patient is brought to the emergency department by EMS for chief complaint of nausea and vomiting for the last 12 hours. He states he has been staying at the [place] for the last week and a lot of people there have the same symptoms. The patient states that he vomited all night and just felt very dehydrated. He denies any diarrhea. No abdominal pain. No fevers. He states that he is otherwise pretty healthy but does take Diflucan for tinea versicolor. No other complaints at this time. He was started on IV fluids and Zofran in route and states he is starting to feel better. PD PAST MEDICAL HISTORY - Past Medical History Cardiovascular: None, High cholesterol Respiratory: None GI: Ulcers, Colon polyps : None Psych: Bipolar disorder Musculoskeletal: None - Past Surgical History Past Surgical History: Yes General: Colonoscopy - Present Medications Home Medications: Ambulatory Orders Medication Instructions Recorded Confirmed Atorvastatin [Lipitor] 40 mg PO DAILY 06/20/17 03/10/22 Albuterol Sulf [Ventolin Hfa 1 - 2 puffs INH Q4HR PRN #1 inhaler 03/10/22 Inhaler] Azithromycin [Zithromax] 250 mg PO DAILY #6 tablet 03/10/22 Ondansetron Odt [Zofran] 4 mg TL Q6H PRN #10 tablet 12/25/22 - Allergies Allergies/Adverse Reactions: Allergies Allergy/AdvReac Type Severity Reaction Status Date / Time carbamazepine [From Tegretol] Allergy Unknown Verified 12/25/22 07:52 - Social History Does the pt smoke?: No Smoking Status: Never smoker Does the pt drink ETOH?: Yes Does the pt have substance abuse?: No - Immunizations Immunizations are current?: Yes PD ED PE NORMAL - Vitals Vital signs reviewed: Yes - General General: Alert and oriented X 3, No acute distress, Well developed/nourished - HEENT HEENT: Atraumatic, PERRL, EOMI, Moist mucous membranes - Neck Neck: Supple, no meningeal sign - Cardiac Cardiac: RRR, No murmur, Strong equal pulses - Respiratory Respiratory: No respiratory distress, Clear bilaterally - Abdomen Abdomen: Soft, Non tender, Non distended - Derm Derm: Normal color, Warm and dry, No rash - Extremities Extremities: No deformity, No edema - Neuro Neuro: Alert and oriented X 3 - Psych Psych: Normal mood, Normal affect Results - Vitals Vitals: Vital Signs - 24 hr 12/25/22 12/25/22 07:49 08:00 Temperature 37.4 C Heart Rate 88 82 Respiratory 16 14 Rate Blood Pressure 129/74 132/81 H O2 Saturation 94 98 Oxygen O2 Source Room air - Labs Labs: Laboratory Tests 12/25/22 12/25/22 07:46 07:46 WBC 9.6 RBC 4.98 Hgb 15.2 Hct 46.9 MCV 94.2 H MCH 30.5 MCHC 32.4 RDW 12.4 Plt Count 206 MPV 9.0 Neut # (Auto) 8.7 H Lymph # (Auto) 0.3 L [place] # (Auto) 0.6 Eos # (Auto) 0.1 Baso # (Auto) 0.0 Absolute Nucleated RBC 0.00 Nucleated RBC % 0.0 Sodium 135 Potassium 4.0 Chloride 103 Carbon Dioxide 24 Anion Gap 8.0 BUN 23 H Creatinine 1.1 Estimated GFR (MDRD) 67 L Glucose 125 H Calcium 8.2 L Total Bilirubin 1.0 AST 21 ALT 20 Alkaline Phosphatase 60 Total Protein 6.2 L Albumin 3.3 Globulin 2.9 Albumin/Globulin Ratio 1.1 Lipase 27 PD Medical Decision Making - ED course Complexity details: reviewed results, re-evaluated patient, considered differential, d/w patient ED course: The patient was quite well-appearing in the emergency department. I did give him the rest of the liter of fluid that EMS had started and ultimately, a dose of Phenergan 12.5 mg. Labs, including CBC and ER abdominal panel, were obtained and reviewed by me, and unremarkable. Departure - Departure Disposition: Home, Self Care Clinical Impression: Viral syndrome Vomiting Qualifiers: Vomiting type: unspecified Nausea presence: with nausea Qualified Code(s): R11.2 - Nausea with vomiting, unspecified Condition: Stable Instructions: ED Nausea Vomiting Prescriptions: Ondansetron Odt [Zofran] 4 mg TL Q6H PRN #10 tablet PRN Reason: Nausea / Vomiting Comments: Your labs look great. You most likely have the viral illness that is going around the community right now and causing many of the people to have similar symptoms to what you have. This should pass on its own in the next few days to a week. A prescription for a nausea medication, Zofran, has been electronically transmitted to the [facility] pharmacy in [place]. Please do not try to eat regular food until you have been free of vomiting for 24 hours. You should drink only clear liquids for the time being, including water and electrolyte drinks and possibly mike imelda. If you are able to tolerate these for the next 24 hours, then you may start eating simple foods such as top Ramen, saltine crackers, or white rice. If you are able to tolerate this, then you may eat more complex food when you feel ready.
[2022-12-25 07:54] LABS: BASOPHILS % (AUTO) 0.3 %; EOSINOPHILS # (AUTO) 0.1 10^3/uL (0.0-0.7); EOSINOPHILS % (AUTO) 0.6 %; HCT - HEMATOCRIT 46.9 % (42.0-52.0); HGB - HEMOGLOBIN 15.2 g/dL (14.0-18.0); LYMPHOCYTES # (AUTO) 0.3 10^3/uL (1.5-3.5); LYMPHOCYTES % (AUTO) 2.9 %; MEAN CORPUSCULAR HEMOGLOBIN 30.5 pg (27.0-31.0); MEAN CORPUSCULAR HGB CONC 32.4 g/dL (32.0-36.0); MEAN CORPUSCULAR VOLUME 94.2 fL (80.0-94.0); MONOCYTES # (AUTO) 0.6 10^3/uL (0.0-1.0); MONOCYTES % (AUTO) 5.7 %; NEUTROPHILS # (AUTO) 8.7 10^3/uL (1.5-6.6); NEUTROPHILS % (AUTO) 90.3 %; PLT - PLATELET COUNT 206 10^3/uL (130-450); RED BLOOD COUNT 4.98 10^6/uL (4.70-6.10); RED CELL DISTRIBUTION WIDTH 12.4 % (12.0-15.0); WHITE BLOOD COUNT 9.6 x10^3/uL (4.8-10.8)
[2022-12-25 08:08] LABS: ALBUMIN 3.3 g/dL (3.2-5.5); ALBUMIN/GLOBULIN RATIO 1.1 (1.0-2.2); CALCIUM 8.2 mg/dL (8.5-10.3); CREATININE 1.1 mg/dL (0.6-1.2); TOTAL PROTEIN 6.2 g/dL (6.7-8.2)
[2022-12-25 09:20] VITALS: BP 121/78
== END 2022-12-25 09:37 | disposition home or self-care (01) ==
LOC: ED 07:40
DX: B34.9 Viral infection, unspecified (principal)
CPT/HCPCS: 36415; 80053; 83690; 85025; 96365; 99283; 99284; J7040

== ENCOUNTER 2023-01-05 01:33 | Outpatient (CLI) | payer MEDICARE, MEDICAID | END 2023-01-05 23:59 | disposition critical access hospital (66) | LOC: EMS 01:33 | DX: R11.10 Vomiting, unspecified (principal) | CPT/HCPCS: A0425; A0429 ==

== ENCOUNTER 2023-01-05 01:50 | Emergency (ER) | payer MEDICARE, MEDICAID ==
[2023-01-05 02:06] LABS: BASOPHILS # (AUTO) 0.1 10^3/uL (0.0-0.1); BASOPHILS % (AUTO) 0.9 %; EOSINOPHILS # (AUTO) 0.2 10^3/uL (0.0-0.7); EOSINOPHILS % (AUTO) 3.2 %; HCT - HEMATOCRIT 47.1 % (42.0-52.0); HGB - HEMOGLOBIN 15.2 g/dL (14.0-18.0); LYMPHOCYTES # (AUTO) 1.5 10^3/uL (1.5-3.5); LYMPHOCYTES % (AUTO) 22.7 %; MEAN CORPUSCULAR HGB CONC 32.3 g/dL (32.0-36.0); MEAN CORPUSCULAR VOLUME 93.1 fL (80.0-94.0); MONOCYTES # (AUTO) 0.5 10^3/uL (0.0-1.0); MONOCYTES % (AUTO) 7.9 %; NEUTROPHILS # (AUTO) 4.2 10^3/uL (1.5-6.6); NEUTROPHILS % (AUTO) 64.7 %; PLT - PLATELET COUNT 246 10^3/uL (130-450); RED BLOOD COUNT 5.06 10^6/uL (4.70-6.10); RED CELL DISTRIBUTION WIDTH 12.3 % (12.0-15.0); WHITE BLOOD COUNT 6.6 x10^3/uL (4.8-10.8)
[2023-01-05] MEDS: SODIUM CHLORIDE 0.9% 1,000 ML IV STA (02:13)
[2023-01-05] MEDS ORDERED: ONDANSETRON 4 MG/2 ML VIAL ONE (02:13)
[2023-01-05] MEDS: ONDANSETRON 4 MG/2 ML VIAL IVP STA (02:13)
[2023-01-05 02:15] LABS: ALBUMIN 3.6 g/dL (3.2-5.5); ALBUMIN/GLOBULIN RATIO 1.1 (1.0-2.2); BILIRUBIN,TOTAL 0.2 mg/dL (0.2-1.0); CALCIUM 9.1 mg/dL (8.5-10.3); CREATININE 1.1 mg/dL (0.6-1.2); POTASSIUM 3.9 mmol/L (3.5-5.0); TOTAL PROTEIN 6.8 g/dL (6.7-8.2)
--- NOTE | 2023-01-05 03:13 | ED Physician Documentation ---
PD HPI NVD - Stated complaint Stated Complaint: VOMITING - Chief complaint Chief Complaint: Abd Pain - History obtained from History obtained from: Patient - Additonal information Additional information: Patient is a 67-year-old male presenting for evaluation of nausea and vomiting that started around 1:00 this morning along with abdominal cramping. Patient is a [facility] and states that others have recently been ill in the past few weeks with GI symptoms. He actually presented to the emergency department on December 25 with a similar episode. He states that that episode resolved after approximately 24 hours but it did take another 24 hours for his appetite to return.Patient reports eating salad and a sherman pie last night. This morning he woke up around 1:00 with nausea and vomiting consisting of food. Denies blood in his emesis. Denies diarrhea. Review of Systems Constitutional: denies: Fever Cardiac: denies: Chest pain / pressure Respiratory: denies: Dyspnea GI: reports: Nausea, Vomiting. denies: Diarrhea, Bloody / black stool : denies: Dysuria Musculoskeletal: denies: Back pain Neurologic: denies: Headache PD PAST MEDICAL HISTORY - Past Medical History Past Medical History: Yes Cardiovascular: None, High cholesterol Respiratory: None GI: Ulcers, Colon polyps, Other : None Psych: Bipolar disorder Musculoskeletal: None Other Past Medical History: umbilical and inguinal hernia - Past Surgical History Past Surgical History: Yes General: Colonoscopy - Present Medications Home Medications: Ambulatory Orders Medication Instructions Recorded Confirmed Ondansetron Odt [Zofran] 4 mg TL Q6H PRN #10 tablet 01/05/23 - Allergies Allergies/Adverse Reactions: Allergies Allergy/AdvReac Type Severity Reaction Status Date / Time carbamazepine [From Tegretol] Allergy Unknown Verified 01/05/23 02:00 - Social History Does the pt smoke?: No Smoking Status: Never smoker Does the pt drink ETOH?: Yes Does the pt have substance abuse?: No - Immunizations Immunizations are current?: Yes - POLST Patient has POLST: No PD ED PE NORMAL - General General: Alert and oriented X 3, No acute distress, Well developed/nourished - HEENT HEENT: Atraumatic - Neck Neck: Supple, no meningeal sign - Cardiac Cardiac: RRR, No murmur - Respiratory Respiratory: No respiratory distress, Clear bilaterally - Abdomen Abdomen: Normal bowel sounds, Soft, Non tender, Non distended - Derm Derm: Warm and dry - Neuro Neuro: Normal speech Results - Vitals Vitals: Vital Signs - 24 hr 01/05/23 01/05/23 01/05/23 01:55 02:05 03:36 Temperature 36.7 C 36.7 C Heart Rate 63 58 L 58 L Respiratory 15 16 13 Rate Blood Pressure 128/95 H 137/93 H 127/85 H O2 Saturation 99 97 95 Oxygen O2 Source Room air - Labs Labs: Laboratory Tests 01/05/23 01/05/23 01:57 01:57 WBC 6.6 RBC 5.06 Hgb 15.2 Hct 47.1 MCV 93.1 MCH 30.0 MCHC 32.3 RDW 12.3 Plt Count 246 MPV 9.0 Neut # (Auto) 4.2 Lymph # (Auto) 1.5 [place] # (Auto) 0.5 Eos # (Auto) 0.2 Baso # (Auto) 0.1 Absolute Nucleated RBC 0.00 Nucleated RBC % 0.0 Sodium 140 Potassium 3.9 Chloride 106 Carbon Dioxide 27 Anion Gap 7.0 BUN 16 Creatinine 1.1 Estimated GFR (MDRD) 67 L Glucose 115 H Calcium 9.1 Total Bilirubin 0.2 AST 16 ALT 23 Alkaline Phosphatase 59 Total Protein 6.8 Albumin 3.6 Globulin 3.2 Albumin/Globulin Ratio 1.1 Lipase 44 PD Medical Decision Making - ED course Complexity details: reviewed results, re-evaluated patient, d/w patient ED course: Patient presenting for evaluation of nausea and vomiting since early this morning. [facility] a [facility] had several residents also with a GI bug in the past few weeks. Patient also had a similar episode 2 weeks ago. His vital signs are stable and his abdominal exam is benign. CBC and chemistries were obtained without any significant abnormalities. He was given 1 L of normal saline and 4 mg of IV Zofran with significant improvement in his symptoms. Repeat abdominal exam remains benign. Discussed plan for continued supportive care as well as concerning symptoms to return for. Departure - Departure Disposition: 01 Home, Self Care Clinical Impression: Nausea & vomiting Condition: Stable Instructions: ED Nausea Vomiting Prescriptions: Ondansetron Odt [Zofran] 4 mg TL Q6H PRN #10 tablet PRN Reason: Nausea / Vomiting Comments: Please continue with staying hydrated with small amounts of liquids. I have sent a prescription for an antinausea medications to [facility] in [place]. Return to the ER with any worsening symptoms such as continued vomiting or development of abdominal pain. Discharge Date/Time: 01/05/23 03:38
[2023-01-05] MEDS: ONDANSETRON ODT 4 MG Prepack 2 TL PRN (03:35)
[2023-01-05 03:38] VITALS: BP 127/85
== END 2023-01-05 03:38 | disposition home or self-care (01) ==
LOC: ED 01:50
DX: R11.2 Nausea with vomiting, unspecified (principal)
CPT/HCPCS: 36415; 80053; 83690; 85025; 96374; 99283

== ENCOUNTER 2023-01-14 05:18 | Outpatient (CLI) | payer MEDICARE, MEDICAID | END 2023-01-14 23:59 | disposition EMS.NT | LOC: EMS 05:18 | DX: R05.9 Cough, unspecified (principal) ==

== ENCOUNTER 2023-02-01 01:39 | Outpatient (CLI) | payer MEDICARE, MEDICAID | END 2023-02-01 01:40 | disposition critical access hospital (66) | LOC: EMS 01:39 | DX: R06.02 Shortness of breath (principal); R53.83 Other fatigue; R05.9 Cough, unspecified | CPT/HCPCS: A0425; A0429 ==

== ENCOUNTER 2023-02-01 01:58 | Emergency (ER) | payer MEDICARE, MEDICAID ==
--- NOTE | 2023-02-01 03:14 | ED Physician Documentation ---
PD HPI DYSPNEA - Stated complaint Stated Complaint: SOA - Chief complaint Chief Complaint: Resp - History obtained from History obtained from: Patient - Additional information Additional information: 67yM p/w cough, soa and uri symptoms since yesterday. denies fever, cp, nausea. he is concerned he has covid. Review of Systems Constitutional: reports: Myalgias, Fatigue. denies: Fever Cardiac: denies: Chest pain / pressure Respiratory: reports: Dyspnea, Cough PD PAST MEDICAL HISTORY - Past Medical History Past Medical History: Yes Cardiovascular: None, High cholesterol Respiratory: None GI: Ulcers, Colon polyps, Other : None Psych: Bipolar disorder Musculoskeletal: None Other Past Medical History: schizoaffective - Past Surgical History Past Surgical History: Yes General: Colonoscopy - Present Medications Home Medications: Ambulatory Orders Medication Instructions Recorded Confirmed Ondansetron Odt [Zofran] 4 mg TL Q6H PRN #10 tablet 01/05/23 - Allergies Allergies/Adverse Reactions: Allergies Allergy/AdvReac Type Severity Reaction Status Date / Time carbamazepine [From Tegretol] Allergy Unknown Verified 01/05/23 02:00 - Social History Does the pt smoke?: No Smoking Status: Never smoker Does the pt drink ETOH?: Yes Does the pt have substance abuse?: No - Immunizations Immunizations are current?: Yes - POLST Patient has POLST: No PD ED PE NORMAL - Vitals Vital signs reviewed: Yes - General General: Alert and oriented X 3, No acute distress, Well developed/nourished - HEENT HEENT: Atraumatic, PERRL, EOMI - Neck Neck: Supple, no meningeal sign - Cardiac Cardiac: RRR - Respiratory Respiratory: No respiratory distress, Clear bilaterally - Abdomen Abdomen: Non tender, Non distended Results - Vitals Vitals: Vital Signs - 24 hr 02/01/23 02:02 Temperature 36.4 C L Heart Rate 80 Respiratory 16 Rate Blood Pressure 134/87 H O2 Saturation 94 Oxygen O2 Source Room air PD Medical Decision Making - ED course ED course: 67yM p/w viral uri sx X couple days. well appearing in the ED with benign exam. Lungs ctab. symptomatic care discussed. offered to perform a covid test and patient declined. return precautions given. plan to f/u with pcp. Departure - Departure Disposition: 01 Home, Self Care Clinical Impression: Viral URI with cough Condition: Stable Instructions: ED Viral Syndrome Comments: You are seen in the emergency department for medical evaluation. You most likely have a cold virus. Please stay well-hydrated, get lots of rest, and better cool-mist humidifier by the bedside at nighttime.Return to the emergency department if you have new or worsening symptoms or other concerns. Follow-up with your primary care provider.
[2023-02-01 03:26] VITALS: BP 132/81
== END 2023-02-01 03:26 | disposition home or self-care (01) ==
LOC: EDUNIT# → ED 01:58
DX: J06.9 Acute upper respiratory infection, unspecified (principal); E78.00 Pure hypercholesterolemia, unspecified
CPT/HCPCS: 99282; 99283